=== PATIENT | female | born 2000 | race Caucasian/White ===

== ENCOUNTER 2019-01-23 18:00 | Emergency (ER) | payer OTHER ==
--- NOTE | 2019-01-23 18:36 | EDPHY ---
H & P Stated Complaint: mid sternal and epigastric chest pain/burning since wednesday Time Seen by Provider: 01/23/19 18:36 - Personal History LMP (Females 10-55): 22-28 Days Ago Current Tetanus Diphtheria and Acellular Pertussis (TDAP): Yes - Medical/Surgical History Hx Asthma: No Hx Chronic Respiratory Disease: No Hx Diabetes: No Hx Cardiac Disease: No Hx Renal Disease: No Hx Cirrhosis: No Hx Alcoholism: No Hx HIV/AIDS: No Hx Splenectomy or Spleen Trauma: No Other PMH: ddenies - Social History Smoking Status: Never smoked Constitutional: Initial Vital Signs Temperature (C) 37.1 C 01/23/19 18:10 Heart Rate 72 01/23/19 18:10 Respiratory Rate 18 01/23/19 18:10 Blood Pressure 111/65 01/23/19 18:10 O2 Sat (%) 100 01/23/19 18:10 O2 Delivery Mode Room Air Allergies/Adverse Reactions: No Known Allergies Allergy (Unverified 01/23/19 18:10) Home Medications: Medication Instructions Recorded Famotidine [Pepcid 20 MG (OTC)] 20 mg PO DAILY #10 tab 01/23/19 Femynor 28 Tablet 01/23/19 Sucralfate [Carafate Oral Liquid 100 mg PO QID #240 ml 01/23/19 100 mg/ml] Medical Decision Making ED Course/Re-evaluation: CHIEF COMPLAINT: Chest pain HISTORY OF PRESENT ILLNESS: The patient is a 18 y/o female complaining of chest pain and a burning sensation onset 5 days ago. These symptoms began after starting a 7 day course doxycycline, which she finished 3 days ago. She does have pain while swallowing but no difficulty with swallowing. She took Pepcid which did not alleviate her symptoms. No fever, headache, body aches, lightheadedness, heart palpitations, shortness of breath, cough, abdominal pain, urinary or bowel complaints, numbness, paresthesias. REVIEW OF SYSTEMS: A comprehensive 10 system review of systems is otherwise negative aside from elements mentioned in the history of present illness and medical decision making. PHYSICAL EXAM: HR, BP, O2 Sat, RR. Temp noted General Appearance: Alert, well hydrated, appropriate, and non-toxic appearing. Head: Atraumatic without scalp tenderness or obvious injury Eyes: Pupils equal, round, reactive to light and accommodation, EOMI, no trauma , no injection. Ears: Clear bilaterally, no perforation, normal landmarks Nose: Atraumatic, no rhinorrhea, clear. Throat: There is no erythema or exudates, no lesions, normal tonsils, mucus membranes moist. Neck: Supple, 2+ carotid upstroke, nontender, no lymphadenopathy. Respiratory: No retractions, no distress, no wheezes, and no accessory muscle use. Lungs are clear to auscultation bilaterally. Cardiovascular: Regular rate and rhythm, no murmurs, rubs, or gallops. Bilateral carotid, radial, dorsalis pedis, and posterior tibial pulses intact. Good capillary refill all extremities. Gastrointestinal: Abdomen is soft, nontender, non-distended, no masses, no rebound, no guarding, no peritoneal signs. Musculoskeletal: Normal active ROM of all extremities, atraumatic. Neurological: Alert, appropriate, and interactive. The patient has normal DTRs and non-focal cranial nerves, motor, sensory, and cerebellar exam. Skin: No rashes, good turgor, no nodules on palpation. Past medical history: Denies Past surgical history: Denies Family history: Denies Social history: Mother at bedside, student at , single DIAGNOSTICS/PROCEDURES/CRITICAL CARE TIME: EKG: The 12 lead EKG was interpreted by myself as sinus rhythm with a rate of 71. See hard copy and/or "tracemaster" electronic copy for interpretation. DIFFERENTIAL DIAGNOSIS: The differential diagnosis for the patient's chest pain included but was not limited to esophagitis, myocardial ischemia, pulmonary embolus, chest wall pain , pleural inflammation, and pulmonary infectious causes. MEDICAL DECISION MAKING: The patient is a 18 y/o female complaining of chest pain and a burning sensation onset 5 days ago after starting a 7 day course of doxycycline. The patient has a normal physical exam. I suspect the patient has esophagitis due to doxycycline. EKG ordered; GI cocktail and Carafate administered. 1843: I interpreted patient's EKG as sinus rhythm with a rate of 71. 1915: Reassessed patient and discussed EKG findings. I have prescribed her Pepcid and Carafate. Return precautions provided; patient is comfortable with this plan. - Data Points Medications Given: Discontinued Medications Al Hydroxide/Mg Hydroxide (Maalox Susp) 30 ml PO ONCE ONE Stop: 02/25/19 18:43 Last Admin: 01/23/19 18:52 Dose: 30 ml Hyoscyamine Sulfate (Levsin, Hyomax-Sl) 0.25 mg PO ONCE ONE Stop: 01/23/19 18:43 Last Admin: 01/23/19 18:52 Dose: 0.25 mg Lidocaine (Lidocaine 2% Viscous) 15 ml PO ONCE ONE Stop: 01/23/19 18:43 Last Admin: 01/23/19 18:52 Dose: 15 ml Departure - Departure Disposition: Home, Routine, Self-Care Clinical Impression: Esophagitis due to doxycycline Condition: Good Instructions: Esophagitis (ED) Additional Instructions: 1. Follow-up with your primary doctor within 72 hours. 2. Return to the Emergency Department for fever, chest pain, shortness of breath , increasing pain or other worsening of condition. 3. Take Pepcid and Carafate as prescribed. Referrals: Jamila Freeman [Primary Care Provider] - As per Instructions Prescriptions: Famotidine [Pepcid 20 MG (OTC)] 20 mg PO DAILY #10 tab Sucralfate [Carafate Oral Liquid 100 mg/ml] 100 mg PO QID #240 ml Report Scribed for: Matthew Jimenez Report Scribed by: Rebecca Fritz Date of Report: 01/23/19 Time of Report: 18:38
[2019-01-23] MEDS ORDERED: MAG HYDROX/AL HYDROX/SIMETH 30 ML UDCUP PO ONE (18:42)
[2019-01-23] MEDS ORDERED: LIDOCAINE 2% VISCOUS 15 ML UDCUP PO ONE (18:42)
[2019-01-23] MEDS ORDERED: HYOSCYAMINE SULFATE 0.125 MG TAB PO ONE (18:42)
[2019-01-23] MEDS ORDERED: HYOSCYAMINE SULFATE 0.125 MG TAB ONE (18:51)
[2019-01-23 19:27] VITALS: BP 113/73
--- NOTE | 2019-01-23 19:32 | CPEKG ---
Test Reason : OPEN Blood Pressure : / mmHG Vent. Rate : 078 BPM Atrial Rate : 080 BPM P-R Int : 131 ms QRS Dur : 102 ms QT Int : 386 ms P-R-T Axes : -42 058 016 degrees QTc Int : 440 ms Sinus rhythm Abnormal T, consider ischemia, anterior leads Confirmed by Matthew Jimenez ([id number] on 01/23/2019 7:31:58 PM Referred By: Matthew Jimenez Confirmed By:Matthew Jimenez
[2019-01-23] MEDS ORDERED: SUCRALFATE 1 GM/10 ML UDCUP PO SCH (21:00)
== END 2019-01-23 19:26 | disposition home or self-care (01) ==
DX: K20.9 Esophagitis, unspecified (principal); T36.4X5A Adverse effect of tetracyclines, initial encounter